=== PATIENT | female | born 1935 | race Caucasian/White ===

== ENCOUNTER 2019-04-18 18:51 | Inpatient (IN) ==
[2019-04-18] MEDS ORDERED: ALBUTEROL/IPRATROPIUM 3 ML NEB RESP TX STA (19:32)
[2019-04-18] MEDS ORDERED: ONDANSETRON 4 MG/2 ML VIAL IV ONE (19:32)
[2019-04-18] MEDS ORDERED: SODIUM CHLORIDE 0.9% 1,000 ML IV STA (19:32)
[2019-04-18 20:32] LABS: Basophils % 0.2 % (0.0-0.8); Eosinophils % 0.1 % (0.00-10.9); Hematocrit 41.1 VOL% (35.7-47.0); Hemoglobin 13.6 GM/DL (12.0-16.0); Immature Granulocytes % 0.4 %; Immature Granulocytes Absolute 0.07 #; Lymphocytes # 2.4 10*3/uL (1.4-4.0); Lymphocytes % 13.7 % (21.3-54.2); Mean Corpuscular HGB Conc 33.1 GM/DL (32-36); Mean Corpuscular Volume 87.4 FL (87-102); Mean Platelet Volume 10.8 FL (9.6-12.0); Monocytes % 4.6 % (1.7-12.7); Platelet Count 204 T/CUMM (130-400); Red Cell Distribution Width 13.5 % (9.3-17.3); White Blood Count 17.2 T/CUMM (4-12)
[2019-04-18 20:46] LABS: PT Patient Result 10.8 SECS (9.6-12.2)
[2019-04-18 20:46] LABS: Apearance,Urine CLEAR (Clear); Bacteria,Urine Few /HPF (Few); Bilirubin,Urine Negative (Negative); Blood, Urine Small mg/dL (Negative); Glucose,Urine (UA) Negative (Negative); Ketones,Urine 20 mg/dL (Negative); Mucus,Urine Moderate /LPF (Occasional); Nitrite,Urine Negative (Negative); Protein,Urine 30 MG/DL; RBC,Urine 5 /HPF (0-4); Squamous Epithelial Cell,Urine Occasional /HPF (0-10); Urine Color Amber (Yellow); Urine Specific Gravity 1.017 (1.001-1.035); WBC,Urine 3 /HPF (0-6)
[2019-04-18 20:54] LABS: Alanine Aminotransferase 20 U/L (13-56); Albumin 3.3 G/DL (3.4-5.0); Alkaline Phosphatase 87 U/L (45-117); Aspartate Amino Transferase 14 U/L (0-37); Blood Urea Nitrogen 14 MG/DL (7-18); Estimated Glom Filtration Rate 54 ML/MIN; Glucose 136 MG/DL (74-106); Osmolality,Calculated 268.4 MOS/KG (273-304); Total Protein 7.6 G/DL (6.4-8.3); Troponin I < 0.015 NG/ML (0.00-0.045)
[2019-04-18] MEDS ORDERED: LEVOFLOXACIN INJ 750 MG in PREMIX 1 EACH IV STA (20:58)
[2019-04-18] MEDS ORDERED: ACETAMINOPHEN 325 MG TABLET PO PRN (22:23)
[2019-04-18] MEDS ORDERED: PROMETHAZINE 25 MG/1 ML VIAL IM PRN (22:23)
[2019-04-18] MEDS ORDERED: NICOTINE 21 MG/24 HR PATCH TRANSDERM PRN (22:23)
[2019-04-18] MEDS ORDERED: diphenhydrAMINE CAP 25 MG CAPSULE PO PRN (22:23)
[2019-04-18] MEDS ORDERED: hydrALAZINE 20 MG/1 ML VIAL IV PRN (22:23)
[2019-04-18] MEDS ORDERED: DOCUSATE SODIUM 100 MG CAPSULE PO PRN (22:23)
[2019-04-18] MEDS ORDERED: guaiFENesin/DM ER 600-30 MG TABLET PO PRN (22:23)
[2019-04-18] MEDS ORDERED: ALBUTEROL 2.5 MG/3 ML NEB RESP TX PRN (22:23)
[2019-04-18] MEDS ORDERED: MONTELUKAST 10 MG TABLET PO PRN (22:28)
[2019-04-18] MEDS ORDERED: SODIUM CHLORIDE 0.9% 1,000 ML IV SCH (22:30)
[2019-04-19] MEDS ORDERED: INFLUENZA VIRUS VACCINE 0.5 ML SYRINGE IM ONE (01:26)
[2019-04-19] MEDS: ALBUTEROL/IPRATROPIUM 3 ML NEB RESP TX SCH ×4 (05:21→19:44)
[2019-04-19] MEDS: LEVOTHYROXINE 25 MCG TABLET PO SCH (05:59)
[2019-04-19 07:32] LABS: Basophils % 0.2 % (0.0-0.8); Eosinophils # 0.1 10*3/uL (0.0-0.87); Eosinophils % 0.5 % (0.00-10.9); Hematocrit 37.2 VOL% (35.7-47.0); Hemoglobin 12.2 GM/DL (12.0-16.0); Immature Granulocytes % 0.2 %; Immature Granulocytes Absolute 0.03 #; Lymphocytes # 2.4 10*3/uL (1.4-4.0); Lymphocytes % 19.1 % (21.3-54.2); Mean Corpuscular HGB Conc 32.8 GM/DL (32-36); Mean Corpuscular Volume 87.5 FL (87-102); Mean Platelet Volume 10.8 FL (9.6-12.0); Monocytes % 6.2 % (1.7-12.7); Neutrophils % 73.8 % (38.7-73.9); Platelet Count 177 T/CUMM (130-400); Red Blood Count 4.25 MC/CUMM (3.8-5.5); Red Cell Distribution Width 13.6 % (9.3-17.3); White Blood Count 12.5 T/CUMM (4-12)
[2019-04-19 07:57] LABS: Albumin 2.7 G/DL (3.4-5.0); Bilirubin,Total 0.9 MG/DL (0.2-1.0); Calcium 8.5 MG/DL (8.5-10.1); Osmolality,Calculated 270.1 MOS/KG (273-304); Total Protein 6.5 G/DL (6.4-8.3)
[2019-04-19 07:58] LABS: Albumin 2.7 G/DL (3.4-5.0); Bilirubin,Direct 0.24 MG/DL (0.0-0.20); Bilirubin,Indirect 1.1 MG/DL (0.0-1.0); Bilirubin,Total 1.3 MG/DL (0.2-1.0); Total Protein 6.6 G/DL (6.4-8.3)
[2019-04-19] MEDS: CELECOXIB 200 MG CAPSULE PO SCH (08:51)
[2019-04-19] MEDS: GABAPENTIN 400 MG CAPSULE PO SCH ×3 (08:51→21:43)
[2019-04-19] MEDS: OMEGA DHA EPA FISH OIL PO SCH (08:51)
[2019-04-19] MEDS: ENOXAPARIN 40 MG/0.4 ML SYRINGE SUBCUT SCH (08:51)
[2019-04-19] MEDS ORDERED: PANTOPRAZOLE 40 MG TABLET PO SCH (09:00)
[2019-04-19] MEDS: methylPREDNISolone SOD SUC 40 MG/1 ML VIAL IV SCH ×3 (09:50→16:35)
[2019-04-19] MEDS: MONTELUKAST 10 MG TABLET PO SCH (09:51)
[2019-04-19 09:54] LABS: Calcium 8.5 MG/DL (8.5-10.1); Osmolality,Calculated 275.7 MOS/KG (273-304)
[2019-04-19] MEDS: BUDESONIDE 0.5 MG/2 ML NEB RESP TX SCH ×2 (11:34→19:44)
[2019-04-19] MEDS: ARFORMOTEROL 15 MCG/2 ML NEB RESP TX SCH ×2 (11:34→19:44)
[2019-04-19] MEDS: LEVOFLOXACIN INJ 750 MG in PREMIX 1 EACH IV SCH (21:43)
[2019-04-20] MEDS: ALBUTEROL/IPRATROPIUM 3 ML NEB RESP TX SCH ×4 (01:24→19:30)
[2019-04-20] MEDS: methylPREDNISolone SOD SUC 40 MG/1 ML VIAL IV SCH ×3 (01:33→19:06)
[2019-04-20 05:25] LABS: Hematocrit 35.7 VOL% (35.7-47.0); Hemoglobin 11.4 GM/DL (12.0-16.0); Immature Granulocytes % 0.8 %; Immature Granulocytes Absolute 0.07 #; Lymphocytes % 10.9 % (21.3-54.2); Mean Corpuscular HGB Conc 31.9 GM/DL (32-36); Mean Corpuscular Volume 88.4 FL (87-102); Mean Platelet Volume 10.8 FL (9.6-12.0); Monocytes % 2.9 % (1.7-12.7); Neutrophils % 85.4 % (38.7-73.9); Platelet Count 225 T/CUMM (130-400); Red Blood Count 4.04 MC/CUMM (3.8-5.5); Red Cell Distribution Width 13.2 % (9.3-17.3); White Blood Count 9.2 T/CUMM (4-12)
[2019-04-20 05:34] LABS: INR 0.9; PT Patient Result 10.1 SECS (9.6-12.2); Partial Thromboplastin Time 29.3 SECS (20.8-36.0)
[2019-04-20] MEDS: LEVOTHYROXINE 25 MCG TABLET PO SCH (05:34)
[2019-04-20 05:50] LABS: Osmolality,Calculated 276.8 MOS/KG (273-304)
[2019-04-20 06:19] LABS: Platelet Estimate Adequate
[2019-04-20] MEDS: BUDESONIDE 0.5 MG/2 ML NEB RESP TX SCH ×2 (07:10→19:30)
[2019-04-20] MEDS: ARFORMOTEROL 15 MCG/2 ML NEB RESP TX SCH ×2 (07:10→19:30)
[2019-04-20] MEDS: GABAPENTIN 400 MG CAPSULE PO SCH ×3 (10:46→20:51)
[2019-04-20] MEDS: MONTELUKAST 10 MG TABLET PO SCH (10:46)
[2019-04-20] MEDS: CELECOXIB 200 MG CAPSULE PO SCH (10:47)
[2019-04-20] MEDS: ENOXAPARIN 40 MG/0.4 ML SYRINGE SUBCUT SCH (10:47)
[2019-04-20] MEDS: PANTOPRAZOLE 40 MG TABLET PO SCH (10:47)
[2019-04-20] MEDS: OMEGA DHA EPA FISH OIL PO SCH (13:47)
[2019-04-20] MEDS: LEVOFLOXACIN INJ 750 MG in PREMIX 1 EACH IV SCH (20:52)
[2019-04-21] MEDS: ALBUTEROL/IPRATROPIUM 3 ML NEB RESP TX SCH ×4 (00:45→19:10)
[2019-04-21] MEDS: methylPREDNISolone SOD SUC 40 MG/1 ML VIAL IV SCH ×3 (02:08→18:19)
[2019-04-21] MEDS: LEVOTHYROXINE 25 MCG TABLET PO SCH (05:36)
[2019-04-21] MEDS: BUDESONIDE 0.5 MG/2 ML NEB RESP TX SCH ×2 (07:55→19:10)
[2019-04-21] MEDS: ARFORMOTEROL 15 MCG/2 ML NEB RESP TX SCH ×2 (07:55→19:10)
[2019-04-21] MEDS: PANTOPRAZOLE 40 MG TABLET PO SCH (08:53)
[2019-04-21] MEDS: CELECOXIB 200 MG CAPSULE PO SCH (08:53)
[2019-04-21] MEDS: GABAPENTIN 400 MG CAPSULE PO SCH ×3 (08:53→20:22)
[2019-04-21] MEDS: MONTELUKAST 10 MG TABLET PO SCH (08:53)
[2019-04-21] MEDS: ENOXAPARIN 40 MG/0.4 ML SYRINGE SUBCUT SCH (08:53)
[2019-04-21] MEDS: OMEGA DHA EPA FISH OIL PO SCH (08:53)
[2019-04-21] MEDS: LEVOFLOXACIN INJ 750 MG in PREMIX 1 EACH IV SCH (20:22)
[2019-04-22] MEDS: ALBUTEROL/IPRATROPIUM 3 ML NEB RESP TX SCH ×4 (00:29→20:05)
[2019-04-22] MEDS: methylPREDNISolone SOD SUC 40 MG/1 ML VIAL IV SCH ×3 (01:30→21:12)
[2019-04-22] MEDS: LEVOTHYROXINE 25 MCG TABLET PO SCH (05:59)
[2019-04-22] MEDS: ARFORMOTEROL 15 MCG/2 ML NEB RESP TX SCH ×2 (08:09→20:05)
[2019-04-22] MEDS: BUDESONIDE 0.5 MG/2 ML NEB RESP TX SCH ×2 (08:09→20:05)
[2019-04-22] MEDS: ENOXAPARIN 40 MG/0.4 ML SYRINGE SUBCUT SCH (08:20)
[2019-04-22] MEDS: MONTELUKAST 10 MG TABLET PO SCH (08:20)
[2019-04-22] MEDS: PANTOPRAZOLE 40 MG TABLET PO SCH (08:20)
[2019-04-22] MEDS: GABAPENTIN 400 MG CAPSULE PO SCH ×3 (08:20→21:12)
[2019-04-22] MEDS: CELECOXIB 200 MG CAPSULE PO SCH (08:20)
[2019-04-22] MEDS: OMEGA DHA EPA FISH OIL PO SCH (15:22)
[2019-04-22] MEDS ORDERED: LEVOFLOXACIN 750 MG TABLET PO SCH (21:00)
[2019-04-22] MEDS: LEVOFLOXACIN INJ 750 MG in PREMIX 1 EACH IV SCH (21:17)
[2019-04-23] MEDS: LEVOFLOXACIN INJ 750 MG in PREMIX 1 EACH IV SCH (00:17)
[2019-04-23] MEDS: ALBUTEROL/IPRATROPIUM 3 ML NEB RESP TX SCH ×2 (01:05→07:00)
[2019-04-23] MEDS: LEVOTHYROXINE 25 MCG TABLET PO SCH (05:57)
[2019-04-23] MEDS: BUDESONIDE 0.5 MG/2 ML NEB RESP TX SCH (07:00)
[2019-04-23] MEDS: ARFORMOTEROL 15 MCG/2 ML NEB RESP TX SCH (07:00)
[2019-04-23] MEDS: PANTOPRAZOLE 40 MG TABLET PO SCH (09:29)
[2019-04-23] MEDS: CELECOXIB 200 MG CAPSULE PO SCH (09:29)
[2019-04-23] MEDS: GABAPENTIN 400 MG CAPSULE PO SCH (09:30)
[2019-04-23] MEDS: MONTELUKAST 10 MG TABLET PO SCH (09:30)
[2019-04-23] MEDS: ENOXAPARIN 40 MG/0.4 ML SYRINGE SUBCUT SCH (09:30)
[2019-04-23] MEDS: OMEGA DHA EPA FISH OIL PO SCH (09:33)
[2019-04-23] MEDS: methylPREDNISolone SOD SUC 40 MG/1 ML VIAL IV SCH (09:34)
[2019-04-23 13:27] VITALS: BP 98/66
== END 2019-04-23 13:13 | disposition home or self-care (01) | DRG 194 ==
LOC: N.ED 18:51 → N.EDINP 22:23 → SUATTDRO 22:23 → N.5E 23:11
PROVIDERS: ADMIT Internal Medicine; ATTEND Internal Medicine

== ENCOUNTER 2021-02-20 15:03 | Inpatient (IN) ==
[2021-02-20] MEDS ORDERED: SODIUM CHLORIDE 0.9% 1,000 ML IV STA (15:31)
[2021-02-20 15:39] LABS: Basophils % 0.2 % (0.0-0.8); Hematocrit 41.6 VOL% (35.7-47.0); Hemoglobin 13.3 GM/DL (12.0-16.0); Immature Granulocytes % 0.8 %; Immature Granulocytes Absolute 0.11 #; Lymphocytes # 1.5 10*3/uL (1.4-4.0); Lymphocytes % 10.6 % (21.3-54.2); Mean Corpuscular Volume 87.4 FL (87-102); Mean Platelet Volume 10.5 FL (9.6-12.0); Monocytes % 6.8 % (1.7-12.7); Neutrophils % 81.6 % (38.7-73.9); Platelet Count 171 T/CUMM (130-400); Red Blood Count 4.76 MC/CUMM (3.8-5.5)
[2021-02-20 15:46] LABS: INR 1.1; PT Patient Result 11.8 SECS (10.5-12.0)
[2021-02-20 15:53] LABS: Albumin 2.6 G/DL (3.4-5.0); Bilirubin,Total 0.4 MG/DL (0.20-1.00); Calcium 8.1 MG/DL (8.5-10.1); Osmolality,Calculated 283.5 MOS/KG (273-304); Potassium 3.5 MMOL/L (3.5-5.1); Total Protein 6.7 G/DL (6.4-8.2)
[2021-02-20 16:23] LABS: Bilirubin,Urine Negative (Negative); Blood, Urine Small mg/dL (Negative); Glucose,Urine (UA) Negative (Negative); Hyaline Casts,Urine 24 /LPF (0-3); Ketones,Urine 5 mg/dL (Negative); Mucus,Urine Occasional /LPF (Occasional); Nitrite,Urine Negative (Negative); Protein,Urine 100 MG/DL; RBC,Urine 3 /HPF (0-4); Squamous Epithelial Cell,Urine Occasional /HPF (0-10); Urine Appearance CLEAR (Clear); Urine Color Yellow (Yellow); Urine Specific Gravity 1.016 (1.001-1.035); Urine Urobilinogen < 2.0 EU/DL (<2.0)
[2021-02-20] MEDS ORDERED: cefTRIAXone 1,000 MG in SODIUM CHLORIDE 0.9% 100 ML IV STA (16:26)
[2021-02-20] MEDS ORDERED: AZITHROMYCIN INJ 500 MG in SODIUM CHLORIDE 0.9% 250 ML IV STA (16:27)
[2021-02-20] MEDS ORDERED: ONDANSETRON 4 MG/2 ML VIAL IV PRN (16:47)
[2021-02-20] MEDS ORDERED: ALBUTEROL 2.5 MG/3 ML NEB RESP TX PRN (16:47)
[2021-02-20] MEDS ORDERED: DEXTROSE 50% 25 GM/50 ML SYRINGE IV PRN ×2 (16:47)
[2021-02-20] MEDS ORDERED: GLUCAGON 1 MG VIAL IM PRN (16:47)
[2021-02-20] MEDS ORDERED: [UNRECOGNIZED DRUG - OTHER] PO PRN (16:53)
[2021-02-20] MEDS ORDERED: MAGNESIUM SULF RIDER 1 GM/100 ML PREMIX IV ONE (17:42)
[2021-02-20] MEDS ORDERED: ALBUTEROL/IPRATROPIUM 3 ML NEB RESP TX SCH (19:00)
[2021-02-20] MEDS: INSULIN REGULAR 100 UNIT/ML SUBCUT SCH (23:09)
[2021-02-20] MEDS: MONTELUKAST 10 MG TABLET PO SCH (23:12)
[2021-02-20] MEDS: GABAPENTIN 400 MG CAPSULE PO SCH (23:12)
[2021-02-20] MEDS: ACETAMINOPHEN 325 MG TABLET PO PRN (23:12)
[2021-02-21] MEDS: ALBUTEROL INHALER 18 GM INH SCH ×4 (00:12→21:05)
[2021-02-21 05:53] LABS: Basophils % 0.2 % (0.0-0.8); Hematocrit 38.1 VOL% (35.7-47.0); Hemoglobin 12.1 GM/DL (12.0-16.0); Immature Granulocytes % 0.4 %; Immature Granulocytes Absolute 0.03 #; Lymphocytes # 1.6 10*3/uL (1.4-4.0); Lymphocytes % 20.1 % (21.3-54.2); Mean Corpuscular HGB Conc 31.8 GM/DL (32-36); Mean Corpuscular Volume 90.3 FL (87-102); Mean Platelet Volume 9.6 FL (9.6-12.0); Monocytes % 6.4 % (1.7-12.7); Neutrophils % 72.9 % (38.7-73.9); Platelet Count 135 T/CUMM (130-400); Red Blood Count 4.22 MC/CUMM (3.8-5.5); Red Cell Distribution Width 14.3 % (9.3-17.3); White Blood Count 8.2 T/CUMM (4-12)
[2021-02-21 06:29] LABS: Albumin 1.9 G/DL (3.4-5.0); Bilirubin,Total 0.7 MG/DL (0.20-1.00); Calcium 7.5 MG/DL (8.5-10.1); Potassium 4.1 MMOL/L (3.5-5.1); Total Protein 5.6 G/DL (6.4-8.2)
[2021-02-21] MEDS ORDERED: MELATONIN 3 MG TABLET PO PRN (07:09)
[2021-02-21] MEDS: INSULIN REGULAR 100 UNIT/ML SUBCUT SCH ×4 (08:30→21:05)
[2021-02-21] MEDS ORDERED: DEXAMETHASONE 0.5 MG TABLET PO SCH (09:00)
[2021-02-21] MEDS ORDERED: PANTOPRAZOLE 40 MG TABLET PO SCH (09:00)
[2021-02-21] MEDS: CHOLECALCIFEROL 1,000 UNIT TABLET PO SCH (10:02)
[2021-02-21] MEDS: GABAPENTIN 400 MG CAPSULE PO SCH ×3 (10:02→21:05)
[2021-02-21] MEDS: CELECOXIB 200 MG CAPSULE PO SCH (10:02)
[2021-02-21] MEDS: LEVOTHYROXINE 25 MCG TABLET PO SCH (10:03)
[2021-02-21] MEDS: ZINC GLUCONATE 50 MG TABLET PO SCH (10:03)
[2021-02-21] MEDS: ASCORBIC ACID 500 MG TABLET PO SCH ×2 (10:04→21:05)
[2021-02-21] MEDS: LORATADINE 10 MG TABLET PO SCH (10:04)
[2021-02-21] MEDS: CYANOCOBALAMIN 500 MCG TABLET PO SCH (10:04)
[2021-02-21] MEDS: ENOXAPARIN 40 MG/0.4 ML SYRINGE SUBCUT SCH (10:06)
[2021-02-21] MEDS: DEXAMETHASONE 4 MG/1 ML VIAL IV SCH (10:07)
[2021-02-21] MEDS: OMEGA 3 ACID ETHYL ESTERS 1 GM CAPSULE PO SCH (10:07)
[2021-02-21] MEDS: FAMOTIDINE 20 MG TABLET PO SCH ×2 (11:08→21:05)
[2021-02-21] MEDS: AZITHROMYCIN 250 MG TABLET PO SCH (11:08)
[2021-02-21] MEDS ORDERED: MAGNESIUM SULF RIDER 4 GM/100 ML PREMIX IV PRN (11:34)
[2021-02-21] MEDS ORDERED: MAGNESIUM SULF RIDER 2 GM/50 ML PREMIX IV PRN (11:34)
[2021-02-21] MEDS ORDERED: NICOTINE 21 MG/24 HR PATCH TRANSDERM PRN (11:51)
[2021-02-21] MEDS: SODIUM CHLORIDE 0.9% 1,000 ML IV SCH (15:06)
[2021-02-21] MEDS ORDERED: HYDROCORTISONE 25 MG SUPP RECTAL PRN (15:27)
[2021-02-21] MEDS ORDERED: AZITHROMYCIN INJ 500 MG in SODIUM CHLORIDE 0.9% 250 ML IV SCH (17:00)
[2021-02-21] MEDS: cefTRIAXone 1,000 MG in SODIUM CHLORIDE 0.9% 100 ML IV SCH (17:21)
[2021-02-21] MEDS: MONTELUKAST 10 MG TABLET PO SCH (21:05)
[2021-02-21] MEDS: ACETAMINOPHEN 325 MG TABLET PO PRN (21:05)
[2021-02-22] MEDS: ALBUTEROL INHALER 18 GM INH SCH ×3 (01:00→13:40)
[2021-02-22] MEDS ORDERED: guaiFENesin/CODEINE 5 ML LIQUID PO PRN (01:53)
[2021-02-22] MEDS: SODIUM CHLORIDE 0.9% 1,000 ML IV SCH (02:28)
[2021-02-22 05:30] LABS: Hemoglobin 11.5 GM/DL (12.0-16.0); Immature Granulocytes % 0.5 %; Immature Granulocytes Absolute 0.03 #; Lymphocytes # 0.9 10*3/uL (1.4-4.0); Lymphocytes % 14.5 % (21.3-54.2); Mean Corpuscular HGB Conc 31.9 GM/DL (32-36); Mean Corpuscular Volume 89.1 FL (87-102); Mean Platelet Volume 10.5 FL (9.6-12.0); Monocytes % 5.8 % (1.7-12.7); Neutrophils % 79.2 % (38.7-73.9); Platelet Count 143 T/CUMM (130-400); Red Blood Count 4.04 MC/CUMM (3.8-5.5); Red Cell Distribution Width 13.8 % (9.3-17.3); White Blood Count 5.9 T/CUMM (4-12)
[2021-02-22 05:55] LABS: Calcium 7.8 MG/DL (8.5-10.1); Ferritin 140.5 ng/mL (8-252); Osmolality,Calculated 288.8 MOS/KG (273-304); Potassium 4.2 MMOL/L (3.5-5.1)
[2021-02-22] MEDS: INSULIN REGULAR 100 UNIT/ML SUBCUT SCH ×2 (08:02→12:30)
[2021-02-22] MEDS: cefTRIAXone 1,000 MG in SODIUM CHLORIDE 0.9% 100 ML IV SCH (09:25)
[2021-02-22] MEDS: GABAPENTIN 400 MG CAPSULE PO SCH (09:25)
[2021-02-22] MEDS: DEXAMETHASONE 4 MG/1 ML VIAL IV SCH (09:25)
[2021-02-22] MEDS: ENOXAPARIN 40 MG/0.4 ML SYRINGE SUBCUT SCH (09:25)
[2021-02-22] MEDS: CELECOXIB 200 MG CAPSULE PO SCH (09:25)
[2021-02-22] MEDS: OMEGA 3 ACID ETHYL ESTERS 1 GM CAPSULE PO SCH (09:25)
[2021-02-22] MEDS: CHOLECALCIFEROL 1,000 UNIT TABLET PO SCH (09:25)
[2021-02-22] MEDS: ASCORBIC ACID 500 MG TABLET PO SCH (09:25)
[2021-02-22] MEDS: LEVOTHYROXINE 25 MCG TABLET PO SCH (09:25)
[2021-02-22] MEDS: LORATADINE 10 MG TABLET PO SCH (09:25)
[2021-02-22] MEDS: AZITHROMYCIN 250 MG TABLET PO SCH (09:25)
[2021-02-22] MEDS: ZINC GLUCONATE 50 MG TABLET PO SCH (09:25)
[2021-02-22] MEDS: FAMOTIDINE 20 MG TABLET PO SCH (09:25)
[2021-02-22] MEDS: CYANOCOBALAMIN 500 MCG TABLET PO SCH (09:51)
[2021-02-22 12:32] VITALS: BP 111/69
== END 2021-02-22 15:31 | disposition home health service (06) | DRG 177 ==
LOC: EDUNIT# → EDBD → N.ED 15:03 → SUATTDRO 16:47 → N.EDINP 16:47 → N.5E 17:33
PROVIDERS: ADMIT Internal Medicine; ATTEND Internal Medicine

== ENCOUNTER 2021-02-26 17:08 | Inpatient (IN) ==
[2021-02-26 21:03] LABS: Basophils % 0.1 % (0.0-0.8); Eosinophils % 0.1 % (0.00-10.9); Hematocrit 40.9 VOL% (35.7-47.0); Hemoglobin 13.3 GM/DL (12.0-16.0); Immature Granulocytes % 1.5 %; Immature Granulocytes Absolute 0.12 #; Lymphocytes # 0.9 10*3/uL (1.4-4.0); Lymphocytes % 10.7 % (21.3-54.2); Mean Corpuscular HGB Conc 32.5 GM/DL (32-36); Mean Corpuscular Volume 84.9 FL (87-102); Mean Platelet Volume 9.8 FL (9.6-12.0); Monocytes % 3.7 % (1.7-12.7); Neutrophils % 83.9 % (38.7-73.9); Platelet Count 323 T/CUMM (130-400); Red Blood Count 4.82 MC/CUMM (3.8-5.5); Red Cell Distribution Width 13.2 % (9.3-17.3); White Blood Count 8.1 T/CUMM (4-12)
[2021-02-26 21:48] LABS: Albumin 2.3 G/DL (3.4-5.0); Bilirubin,Total 0.5 MG/DL (0.20-1.00); Calcium 8.5 MG/DL (8.5-10.1); Osmolality,Calculated 283.5 MOS/KG (273-304); Potassium 4.4 MMOL/L (3.5-5.1)
[2021-02-26] MEDS ORDERED: MEROPENEM 1,000 MG in SODIUM CHLORIDE 0.9% 100 ML IV STA (23:23)
[2021-02-26] MEDS ORDERED: VANCOMYCIN INJ 1,000 MG in SODIUM CHLORIDE 0.9% 250 ML IV STA (23:23)
[2021-02-26] MEDS ORDERED: NICOTINE 21 MG/24 HR PATCH TRANSDERM PRN (23:27)
[2021-02-26] MEDS ORDERED: diphenhydrAMINE CAP 25 MG CAPSULE PO PRN (23:27)
[2021-02-26] MEDS ORDERED: guaiFENesin/DM ER 600-30 MG TABLET PO PRN (23:27)
[2021-02-26] MEDS ORDERED: ACETAMINOPHEN 325 MG TABLET PO PRN (23:27)
[2021-02-26] MEDS ORDERED: hydrALAZINE 20 MG/1 ML VIAL IV PRN (23:27)
[2021-02-26] MEDS ORDERED: GLUCAGON 1 MG VIAL IM PRN (23:27)
[2021-02-26] MEDS ORDERED: ONDANSETRON 4 MG/2 ML VIAL IV PRN (23:27)
[2021-02-26] MEDS ORDERED: DEXTROSE 10% 250 ML BAG IV PRN (23:36)
[2021-02-27] MEDS ORDERED: HEPARIN 5,000 UNIT/1 ML VIAL SUBCUT SCH
[2021-02-27] MEDS ORDERED: ALBUTEROL/IPRATROPIUM 3 ML NEB RESP TX SCH (01:00)
[2021-02-27] MEDS: ALBUTEROL INHALER 18 GM INH SCH ×4 (01:27→20:45)
[2021-02-27] MEDS ORDERED: REMDESIVIR 200 MG in SODIUM CHLORIDE 0.9% 210 ML IV ONE (02:00)
[2021-02-27] MEDS: HEPARIN 5,000 UNIT/1 ML VIAL SUBCUT SCH (02:18)
[2021-02-27] MEDS: DEXTROSE 5% NACL 0.45% 1,000 ML IV SCH ×3 (02:33→15:55)
[2021-02-27 05:57] LABS: Basophils % 0.2 % (0.0-0.8); Hematocrit 41.1 VOL% (35.7-47.0); Hemoglobin 13.4 GM/DL (12.0-16.0); Immature Granulocytes Absolute 0.16 #; Lymphocytes # 1.2 10*3/uL (1.4-4.0); Lymphocytes % 14.3 % (21.3-54.2); Mean Corpuscular HGB Conc 32.6 GM/DL (32-36); Mean Platelet Volume 9.6 FL (9.6-12.0); Monocytes % 6.4 % (1.7-12.7); Neutrophils % 77.1 % (38.7-73.9); Platelet Count 337 T/CUMM (130-400); Red Blood Count 4.78 MC/CUMM (3.8-5.5); Red Cell Distribution Width 13.2 % (9.3-17.3); White Blood Count 8.1 T/CUMM (4-12)
[2021-02-27 06:21] LABS: Bilirubin,Total 0.6 MG/DL (0.20-1.00); Osmolality,Calculated 281.4 MOS/KG (273-304); Potassium 3.9 MMOL/L (3.5-5.1)
[2021-02-27] MEDS: AZITHROMYCIN INJ 500 MG in SODIUM CHLORIDE 0.9% 250 ML IV SCH (07:57)
[2021-02-27] MEDS ORDERED: MEROPENEM 500 MG in SODIUM CHLORIDE 0.9% 100 ML IV SCH (08:00)
[2021-02-27] MEDS: DEXAMETHASONE 4 MG/1 ML VIAL IV SCH (08:59)
[2021-02-27] MEDS ORDERED: DEXAMETHASONE 4 MG/1 ML VIAL IV SCH (09:00)
[2021-02-27] MEDS: cefTRIAXone 1,000 MG in SODIUM CHLORIDE 0.9% 100 ML IV SCH (09:00)
[2021-02-27] MEDS: PANTOPRAZOLE 40 MG TABLET PO SCH (09:00)
[2021-02-27] MEDS: ENOXAPARIN 40 MG/0.4 ML SYRINGE SUBCUT SCH ×2 (10:37→22:48)
[2021-02-27] MEDS ORDERED: FUROSEMIDE 40 MG/4 ML VIAL IV ONE (15:32)
[2021-02-27] MEDS ORDERED: VANCOMYCIN INJ 1,000 MG in SODIUM CHLORIDE 0.9% 250 ML IV SCH (19:00)
[2021-02-28] MEDS: ALBUTEROL INHALER 18 GM INH SCH ×4 (01:08→19:21)
[2021-02-28 06:28] LABS: Basophils % 0.1 % (0.0-0.8); Eosinophils % 0.1 % (0.00-10.9); Hematocrit 39.6 VOL% (35.7-47.0); Hemoglobin 12.9 GM/DL (12.0-16.0); Immature Granulocytes % 1.6 %; Immature Granulocytes Absolute 0.16 #; Lymphocytes # 1.3 10*3/uL (1.4-4.0); Lymphocytes % 12.7 % (21.3-54.2); Mean Corpuscular HGB Conc 32.6 GM/DL (32-36); Mean Corpuscular Volume 84.6 FL (87-102); Mean Platelet Volume 10.3 FL (9.6-12.0); Monocytes % 5.9 % (1.7-12.7); Neutrophils % 79.6 % (38.7-73.9); Platelet Count 379 T/CUMM (130-400); Red Blood Count 4.68 MC/CUMM (3.8-5.5); Red Cell Distribution Width 13.4 % (9.3-17.3); White Blood Count 10.2 T/CUMM (4-12)
[2021-02-28 06:49] LABS: Albumin 2.2 G/DL (3.4-5.0); Bilirubin,Total 0.7 MG/DL (0.20-1.00); Calcium 8.5 MG/DL (8.5-10.1); Calcium 8.8 MG/DL (8.5-10.1); Ferritin 240.1 ng/mL (8-252); Osmolality,Calculated 282.5 MOS/KG (273-304); Potassium 3.7 MMOL/L (3.5-5.1); Total Protein 7.3 G/DL (6.4-8.2)
[2021-02-28] MEDS: CHOLECALCIFEROL 1,000 UNIT TABLET PO SCH (09:13)
[2021-02-28] MEDS: ZINC GLUCONATE 50 MG TABLET PO SCH (09:13)
[2021-02-28] MEDS: PANTOPRAZOLE 40 MG TABLET PO SCH (09:13)
[2021-02-28] MEDS: DEXAMETHASONE 4 MG/1 ML VIAL IV SCH (09:13)
[2021-02-28] MEDS: AZITHROMYCIN INJ 500 MG in SODIUM CHLORIDE 0.9% 250 ML IV SCH (09:15)
[2021-02-28 09:23] LABS: Sedimentation Rate-Westergren 62 MM/HR (0-30)
[2021-02-28] MEDS: ENOXAPARIN 40 MG/0.4 ML SYRINGE SUBCUT SCH ×2 (09:38→21:53)
[2021-02-28] MEDS ORDERED: ALBUTEROL INHALER 18 GM INH PRN (11:05)
[2021-02-28] MEDS: cefTRIAXone 1,000 MG in SODIUM CHLORIDE 0.9% 100 ML IV SCH (11:15)
[2021-02-28] MEDS: REMDESIVIR 100 MG in SODIUM CHLORIDE 0.9% 100 ML IV SCH (11:50)
[2021-02-28] MEDS: MONTELUKAST 10 MG TABLET PO SCH (19:21)
[2021-03-01] MEDS: ALBUTEROL INHALER 18 GM INH SCH ×4 (00:23→18:02)
[2021-03-01 05:55] LABS: Eosinophils % 0.2 % (0.00-10.9); Hematocrit 40.4 VOL% (35.7-47.0); Hemoglobin 13.1 GM/DL (12.0-16.0); Immature Granulocytes % 1.8 %; Immature Granulocytes Absolute 0.17 #; Lymphocytes # 1.2 10*3/uL (1.4-4.0); Lymphocytes % 13.3 % (21.3-54.2); Mean Corpuscular HGB Conc 32.4 GM/DL (32-36); Mean Corpuscular Volume 85.4 FL (87-102); Mean Platelet Volume 9.8 FL (9.6-12.0); Monocytes % 5.7 % (1.7-12.7); Platelet Count 400 T/CUMM (130-400); Red Blood Count 4.73 MC/CUMM (3.8-5.5); Red Cell Distribution Width 13.3 % (9.3-17.3); White Blood Count 9.3 T/CUMM (4-12)
[2021-03-01 06:19] LABS: Calcium 8.5 MG/DL (8.5-10.1); Ferritin 221.6 ng/mL (8-252); Osmolality,Calculated 287.4 MOS/KG (273-304); Potassium 3.8 MMOL/L (3.5-5.1)
[2021-03-01] MEDS: REMDESIVIR 100 MG in SODIUM CHLORIDE 0.9% 100 ML IV SCH (10:06)
[2021-03-01] MEDS: cefTRIAXone 1,000 MG in SODIUM CHLORIDE 0.9% 100 ML IV SCH (10:06)
[2021-03-01] MEDS: AZITHROMYCIN INJ 500 MG in SODIUM CHLORIDE 0.9% 250 ML IV SCH (10:09)
[2021-03-01] MEDS: LEVOTHYROXINE 25 MCG TABLET PO SCH (10:11)
[2021-03-01] MEDS: PANTOPRAZOLE 40 MG TABLET PO SCH (10:11)
[2021-03-01] MEDS: LORATADINE 10 MG TABLET PO SCH (10:12)
[2021-03-01] MEDS: ZINC GLUCONATE 50 MG TABLET PO SCH (10:12)
[2021-03-01] MEDS: CHOLECALCIFEROL 1,000 UNIT TABLET PO SCH (10:12)
[2021-03-01] MEDS: DEXAMETHASONE 4 MG/1 ML VIAL IV SCH (10:13)
[2021-03-01] MEDS: ENOXAPARIN 40 MG/0.4 ML SYRINGE SUBCUT SCH ×2 (11:30→21:33)
[2021-03-01] MEDS: BARICITINIB 2 MG TABLET PO SCH (14:00)
[2021-03-01] MEDS: MONTELUKAST 10 MG TABLET PO SCH (19:11)
[2021-03-02] MEDS: ALBUTEROL INHALER 18 GM INH SCH ×4 (01:40→18:20)
[2021-03-02 06:35] LABS: Basophils % 0.1 % (0.0-0.8); Eosinophils % 0.3 % (0.00-10.9); Hematocrit 37.1 VOL% (35.7-47.0); Immature Granulocytes % 2.9 %; Immature Granulocytes Absolute 0.22 #; Lymphocytes # 1.3 10*3/uL (1.4-4.0); Lymphocytes % 16.7 % (21.3-54.2); Mean Corpuscular HGB Conc 32.3 GM/DL (32-36); Mean Corpuscular Volume 85.3 FL (87-102); Mean Platelet Volume 10.2 FL (9.6-12.0); Monocytes % 5.6 % (1.7-12.7); Neutrophils % 74.4 % (38.7-73.9); Platelet Count 394 T/CUMM (130-400); Red Blood Count 4.35 MC/CUMM (3.8-5.5); Red Cell Distribution Width 13.2 % (9.3-17.3); White Blood Count 7.7 T/CUMM (4-12)
[2021-03-02 07:01] LABS: Bilirubin,Total 0.5 MG/DL (0.20-1.00); Calcium 8.5 MG/DL (8.5-10.1); Osmolality,Calculated 284.5 MOS/KG (273-304); Potassium 4.2 MMOL/L (3.5-5.1); Total Protein 6.3 G/DL (6.4-8.2)
[2021-03-02 07:10] LABS: Ferritin 207.1 ng/mL (8-252)
[2021-03-02] MEDS: cefTRIAXone 1,000 MG in SODIUM CHLORIDE 0.9% 100 ML IV SCH (08:50)
[2021-03-02] MEDS: AZITHROMYCIN INJ 500 MG in SODIUM CHLORIDE 0.9% 250 ML IV SCH (08:50)
[2021-03-02] MEDS: REMDESIVIR 100 MG in SODIUM CHLORIDE 0.9% 100 ML IV SCH (08:51)
[2021-03-02] MEDS: DEXAMETHASONE 4 MG/1 ML VIAL IV SCH (08:53)
[2021-03-02] MEDS: CHOLECALCIFEROL 1,000 UNIT TABLET PO SCH (08:54)
[2021-03-02] MEDS: LEVOTHYROXINE 25 MCG TABLET PO SCH (08:54)
[2021-03-02] MEDS: LORATADINE 10 MG TABLET PO SCH (08:54)
[2021-03-02] MEDS: ZINC GLUCONATE 50 MG TABLET PO SCH (08:54)
[2021-03-02] MEDS: PANTOPRAZOLE 40 MG TABLET PO SCH (08:54)
[2021-03-02] MEDS: ENOXAPARIN 40 MG/0.4 ML SYRINGE SUBCUT SCH ×2 (10:23→21:31)
[2021-03-02] MEDS: BARICITINIB 2 MG TABLET PO SCH (10:59)
[2021-03-02] MEDS: MONTELUKAST 10 MG TABLET PO SCH (18:20)
[2021-03-03] MEDS: ALBUTEROL INHALER 18 GM INH SCH ×4 (00:12→18:21)
[2021-03-03 06:07] LABS: Basophils % 0.1 % (0.0-0.8); Eosinophils % 0.1 % (0.00-10.9); Hematocrit 39.2 VOL% (35.7-47.0); Hemoglobin 12.9 GM/DL (12.0-16.0); Immature Granulocytes Absolute 0.35 #; Lymphocytes # 1.2 10*3/uL (1.4-4.0); Lymphocytes % 13.7 % (21.3-54.2); Mean Corpuscular HGB Conc 32.9 GM/DL (32-36); Mean Platelet Volume 10.3 FL (9.6-12.0); Monocytes % 5.3 % (1.7-12.7); Neutrophils % 76.8 % (38.7-73.9); Platelet Count 416 T/CUMM (130-400); Red Blood Count 4.61 MC/CUMM (3.8-5.5); Red Cell Distribution Width 13.1 % (9.3-17.3); White Blood Count 8.7 T/CUMM (4-12)
[2021-03-03 06:36] LABS: Bilirubin,Total 0.5 MG/DL (0.20-1.00); Calcium 8.8 MG/DL (8.5-10.1); Potassium 4.2 MMOL/L (3.5-5.1); Total Protein 6.4 G/DL (6.4-8.2)
[2021-03-03 06:38] LABS: Ferritin 216.8 ng/mL (8-252)
[2021-03-03] MEDS: AZITHROMYCIN INJ 500 MG in SODIUM CHLORIDE 0.9% 250 ML IV SCH (07:10)
[2021-03-03] MEDS: DEXAMETHASONE 4 MG/1 ML VIAL IV SCH (08:53)
[2021-03-03] MEDS: ZINC GLUCONATE 50 MG TABLET PO SCH (08:54)
[2021-03-03] MEDS: LEVOTHYROXINE 25 MCG TABLET PO SCH (08:54)
[2021-03-03] MEDS: PANTOPRAZOLE 40 MG TABLET PO SCH (08:54)
[2021-03-03] MEDS: cefTRIAXone 1,000 MG in SODIUM CHLORIDE 0.9% 100 ML IV SCH (08:54)
[2021-03-03] MEDS: CHOLECALCIFEROL 1,000 UNIT TABLET PO SCH (08:54)
[2021-03-03] MEDS: LORATADINE 10 MG TABLET PO SCH (08:54)
[2021-03-03] MEDS: ENOXAPARIN 40 MG/0.4 ML SYRINGE SUBCUT SCH ×2 (09:36→21:55)
[2021-03-03] MEDS: REMDESIVIR 100 MG in SODIUM CHLORIDE 0.9% 100 ML IV SCH (10:00)
[2021-03-03] MEDS: BARICITINIB 2 MG TABLET PO SCH (12:01)
[2021-03-03] MEDS: MONTELUKAST 10 MG TABLET PO SCH (18:21)
[2021-03-04] MEDS: ALBUTEROL INHALER 18 GM INH SCH ×4 (05:40→18:03)
[2021-03-04 05:56] LABS: Basophils % 0.2 % (0.0-0.8); Eosinophils % 0.2 % (0.00-10.9); Hematocrit 38.8 VOL% (35.7-47.0); Hemoglobin 12.5 GM/DL (12.0-16.0); Immature Granulocytes % 3.4 %; Lymphocytes # 1.2 10*3/uL (1.4-4.0); Lymphocytes % 14.1 % (21.3-54.2); Mean Corpuscular HGB Conc 32.2 GM/DL (32-36); Mean Corpuscular Volume 85.7 FL (87-102); Monocytes % 5.6 % (1.7-12.7); Neutrophils % 76.5 % (38.7-73.9); Platelet Count 420 T/CUMM (130-400); Red Blood Count 4.53 MC/CUMM (3.8-5.5); White Blood Count 8.7 T/CUMM (4-12)
[2021-03-04 06:13] LABS: Bilirubin,Total 1.4 MG/DL (0.20-1.00); Calcium 8.2 MG/DL (8.5-10.1); Osmolality,Calculated 281.5 MOS/KG (273-304); Potassium 4.1 MMOL/L (3.5-5.1); Total Protein 6.2 G/DL (6.4-8.2)
[2021-03-04] MEDS: PANTOPRAZOLE 40 MG TABLET PO SCH (08:08)
[2021-03-04] MEDS: LEVOTHYROXINE 25 MCG TABLET PO SCH (08:08)
[2021-03-04] MEDS: CHOLECALCIFEROL 1,000 UNIT TABLET PO SCH (08:08)
[2021-03-04] MEDS: DEXAMETHASONE 4 MG/1 ML VIAL IV SCH (08:08)
[2021-03-04] MEDS: ZINC GLUCONATE 50 MG TABLET PO SCH (08:08)
[2021-03-04] MEDS: LORATADINE 10 MG TABLET PO SCH (08:08)
[2021-03-04] MEDS: cefTRIAXone 1,000 MG in SODIUM CHLORIDE 0.9% 100 ML IV SCH (08:11)
[2021-03-04] MEDS: AZITHROMYCIN INJ 500 MG in SODIUM CHLORIDE 0.9% 250 ML IV SCH (08:12)
[2021-03-04] MEDS: ENOXAPARIN 40 MG/0.4 ML SYRINGE SUBCUT SCH ×2 (10:44→21:30)
[2021-03-04] MEDS: BARICITINIB 2 MG TABLET PO SCH (10:44)
[2021-03-04] MEDS: MONTELUKAST 10 MG TABLET PO SCH (18:01)
[2021-03-04] MEDS ORDERED: ZALEPLON 5 MG CAPSULE PO PRN (18:54)
[2021-03-04] MEDS: ZALEPLON 5 MG CAPSULE PO PRN (20:01)
[2021-03-05] MEDS: ALBUTEROL INHALER 18 GM INH SCH ×2 (00:46→06:13)
[2021-03-05 04:52] LABS: Basophils % 0.3 % (0.0-0.8); Eosinophils % 0.4 % (0.00-10.9); Hematocrit 38.5 VOL% (35.7-47.0); Hemoglobin 12.7 GM/DL (12.0-16.0); Immature Granulocytes % 2.8 %; Lymphocytes # 1.4 10*3/uL (1.4-4.0); Lymphocytes % 12.4 % (21.3-54.2); Mean Platelet Volume 10.2 FL (9.6-12.0); Monocytes % 5.6 % (1.7-12.7); Neutrophils % 78.5 % (38.7-73.9); Platelet Count 397 T/CUMM (130-400); Red Blood Count 4.53 MC/CUMM (3.8-5.5); White Blood Count 10.9 T/CUMM (4-12)
[2021-03-05 05:44] LABS: Albumin 2.1 G/DL (3.4-5.0); Bilirubin,Total 0.4 MG/DL (0.20-1.00); Calcium 8.5 MG/DL (8.5-10.1); Osmolality,Calculated 277.7 MOS/KG (273-304); Total Protein 6.1 G/DL (6.4-8.2)
[2021-03-05] MEDS: CHOLECALCIFEROL 1,000 UNIT TABLET PO SCH (09:04)
[2021-03-05] MEDS: LEVOTHYROXINE 25 MCG TABLET PO SCH (09:04)
[2021-03-05] MEDS: PANTOPRAZOLE 40 MG TABLET PO SCH (09:04)
[2021-03-05] MEDS: ZINC GLUCONATE 50 MG TABLET PO SCH (09:04)
[2021-03-05] MEDS: LORATADINE 10 MG TABLET PO SCH (09:04)
[2021-03-05] MEDS: DEXAMETHASONE 4 MG/1 ML VIAL IV SCH (09:05)
[2021-03-05] MEDS: cefTRIAXone 1,000 MG in SODIUM CHLORIDE 0.9% 100 ML IV SCH (09:06)
[2021-03-05] MEDS: ENOXAPARIN 40 MG/0.4 ML SYRINGE SUBCUT SCH ×2 (09:38→21:35)
[2021-03-05] MEDS: AZITHROMYCIN INJ 500 MG in SODIUM CHLORIDE 0.9% 250 ML IV SCH (10:06)
[2021-03-05] MEDS: MONTELUKAST 10 MG TABLET PO SCH (21:35)
[2021-03-05] MEDS: ZALEPLON 5 MG CAPSULE PO PRN (21:35)
[2021-03-06 05:51] LABS: Basophils % 0.1 % (0.0-0.8); Eosinophils % 0.2 % (0.00-10.9); Hematocrit 36.3 VOL% (35.7-47.0); Hemoglobin 12.2 GM/DL (12.0-16.0); Immature Granulocytes % 1.6 %; Immature Granulocytes Absolute 0.16 #; Lymphocytes % 10.3 % (21.3-54.2); Mean Corpuscular HGB Conc 33.6 GM/DL (32-36); Mean Platelet Volume 10.2 FL (9.6-12.0); Monocytes % 5.7 % (1.7-12.7); Neutrophils % 82.1 % (38.7-73.9); Platelet Count 374 T/CUMM (130-400); Red Blood Count 4.32 MC/CUMM (3.8-5.5); Red Cell Distribution Width 13.2 % (9.3-17.3); White Blood Count 9.8 T/CUMM (4-12)
[2021-03-06 06:20] LABS: Albumin 2.1 G/DL (3.4-5.0); Bilirubin,Total 0.8 MG/DL (0.20-1.00); Calcium 8.4 MG/DL (8.5-10.1); Osmolality,Calculated 283.3 MOS/KG (273-304); Potassium 3.8 MMOL/L (3.5-5.1); Total Protein 5.8 G/DL (6.4-8.2)
[2021-03-06] MEDS: LEVOTHYROXINE 25 MCG TABLET PO SCH (09:22)
[2021-03-06] MEDS: CHOLECALCIFEROL 1,000 UNIT TABLET PO SCH (09:22)
[2021-03-06] MEDS: ZINC GLUCONATE 50 MG TABLET PO SCH (09:22)
[2021-03-06] MEDS: LORATADINE 10 MG TABLET PO SCH (09:22)
[2021-03-06] MEDS: DEXAMETHASONE 4 MG/1 ML VIAL IV SCH (09:23)
[2021-03-06] MEDS: PANTOPRAZOLE 40 MG TABLET PO SCH (09:25)
[2021-03-06] MEDS: cefTRIAXone 1,000 MG in SODIUM CHLORIDE 0.9% 100 ML IV SCH (09:29)
[2021-03-06] MEDS: ENOXAPARIN 40 MG/0.4 ML SYRINGE SUBCUT SCH ×2 (09:30→21:32)
[2021-03-06] MEDS: AZITHROMYCIN INJ 500 MG in SODIUM CHLORIDE 0.9% 250 ML IV SCH (10:14)
[2021-03-06] MEDS: LIDOCAINE 5% PATCH TRANSDERM SCH (13:12)
[2021-03-06] MEDS: DESITIN 4OZ/NYSTATIN 15 GRAM MIXTURE PASTE TOP SCH ×2 (13:12→21:32)
[2021-03-06] MEDS: MONTELUKAST 10 MG TABLET PO SCH (21:27)
[2021-03-07] MEDS: ALBUTEROL INHALER 18 GM INH SCH (00:13)
[2021-03-07] MEDS: LORATADINE 10 MG TABLET PO SCH (08:36)
[2021-03-07] MEDS: CHOLECALCIFEROL 1,000 UNIT TABLET PO SCH (08:36)
[2021-03-07] MEDS: LEVOTHYROXINE 25 MCG TABLET PO SCH (08:36)
[2021-03-07] MEDS: PANTOPRAZOLE 40 MG TABLET PO SCH (08:36)
[2021-03-07] MEDS: ZINC GLUCONATE 50 MG TABLET PO SCH (08:37)
[2021-03-07] MEDS: DESITIN 4OZ/NYSTATIN 15 GRAM MIXTURE PASTE TOP SCH (08:37)
[2021-03-07] MEDS: DEXAMETHASONE 4 MG/1 ML VIAL IV SCH (08:37)
[2021-03-07] MEDS: cefTRIAXone 1,000 MG in SODIUM CHLORIDE 0.9% 100 ML IV SCH (08:42)
[2021-03-07 09:00] LABS: Basophils % 0.1 % (0.0-0.8); Eosinophils % 0.4 % (0.00-10.9); Hematocrit 38.9 VOL% (35.7-47.0); Hemoglobin 12.9 GM/DL (12.0-16.0); Immature Granulocytes % 1.2 %; Immature Granulocytes Absolute 0.13 #; Lymphocytes # 1.3 10*3/uL (1.4-4.0); Lymphocytes % 11.8 % (21.3-54.2); Mean Corpuscular HGB Conc 33.2 GM/DL (32-36); Mean Corpuscular Volume 85.5 FL (87-102); Mean Platelet Volume 10.3 FL (9.6-12.0); Monocytes % 6.1 % (1.7-12.7); Neutrophils % 80.4 % (38.7-73.9); Platelet Count 394 T/CUMM (130-400); Red Blood Count 4.55 MC/CUMM (3.8-5.5); Red Cell Distribution Width 13.3 % (9.3-17.3); White Blood Count 10.8 T/CUMM (4-12)
[2021-03-07] MEDS: LIDOCAINE 5% PATCH TRANSDERM SCH (09:25)
[2021-03-07 09:33] LABS: Albumin 2.4 G/DL (3.4-5.0); Bilirubin,Total 0.6 MG/DL (0.20-1.00); Calcium 8.8 MG/DL (8.5-10.1); Osmolality,Calculated 279.5 MOS/KG (273-304); Potassium 3.9 MMOL/L (3.5-5.1); Total Protein 5.9 G/DL (6.4-8.2)
[2021-03-07] MEDS: ENOXAPARIN 40 MG/0.4 ML SYRINGE SUBCUT SCH (10:33)
[2021-03-07] MEDS ORDERED: SODIUM CHLORIDE 0.9% 500 ML IV ONE (14:18)
[2021-03-07 14:22] VITALS: BP 114/55
== END 2021-03-07 15:36 | disposition home or self-care (01) | DRG 177 ==
LOC: EDUNIT# → N.ED 17:08 → N.EDINP 23:27 → SUATTDRO 23:27 → N.5E 02-27 19:07 → N.CC 02-27 20:45 → N.5E 03-05 10:52
PROVIDERS: ADMIT Internal Medicine; ATTEND Internal Medicine